=== PATIENT | male | born 1970 | race Caucasian/White ===

== ENCOUNTER → 2025-05-12 14:37 | Outpatient (REF) | payer BC, SELFPAY | LOC: HWRAD 14:37 | PROVIDERS: ATTENDING PHYSICIAN Internal Medicine Hematology & Oncology; FAMILY PHYSICIAN Registered Nurse; OTHER PHYSICIAN Internal Medicine Cardiovascular Disease | DX: Z87.891 Personal history of nicotine dependence (principal) | CPT/HCPCS: 71271 ==

== ENCOUNTER → 2025-05-19 14:53 | Outpatient (REF) | payer BC, SELFPAY | LOC: HWRCS 14:53 | PROVIDERS: ATTENDING PHYSICIAN Internal Medicine Cardiovascular Disease; FAMILY PHYSICIAN Registered Nurse | DX: E78.01 Familial hypercholesterolemia (principal); I45.4 Nonspecific intraventricular block | CPT/HCPCS: 93306 ==